=== PATIENT | female | born 1975 | race Hispanic/Latino ===

== ENCOUNTER 2020-02-07 14:18 | Emergency (ER) | payer SELFPAY ==
[2020-02-07] MEDS ORDERED: BUPIVACAINE 0.5% PF 10 ML VIAL ONE (15:38)
[2020-02-07] MEDS ORDERED: LIDOCAINE 1% MPF 5 ML VIAL ONE (15:38)
[2020-02-07] MEDS ORDERED: CLINDAMYCIN 600MG/D5W 600 MG/50 ML BAG IV ONE (15:38)
--- NOTE | 2020-02-07 16:43 | ER ---
Nurse's Notes [facility] Name: Lakeisha Sanon Age: 44 yrs Sex: Female : 1975 Arrival Date: 02/07/2020 Time: 14:21 Bed 24 Private MD: Diagnosis: Other specified disorders of teeth and supporting structures Presentation: 02/06 14:44 Chief complaint: Patient states: "the left side of my face is swollen and hurting.". jd3 Coronavirus screen: At this time, the client does not indicate any symptoms associated with coronavirus-19. Ebola Screen: Patient negative for fever greater than or equal to 101.5 degrees Fahrenheit, and additional compatible Ebola Virus Disease symptoms. Initial Sepsis Screen: Does the patient meet any 2 criteria? No. Patient's initial sepsis screen is negative. Does the patient have a suspected source of infection? No. Patient's initial sepsis screen is negative. Risk Assessment: Do you want to hurt yourself or someone else? Patient reports no desire to harm self or others. Onset of symptoms was February 06, 2020. 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 - Social history:: Smoking status: Patient reports the use of cigarette tobacco products, denies chronic smoking, but will smoke occasionally. Screenin:50 Abuse screen: Denies threats or abuse. Nutritional screening: No deficits noted. aa5 Tuberculosis screening: No symptoms or risk factors identified. Fall Risk None identified. Assessment: 14:48 General: Appears uncomfortable, Behavior is calm, cooperative. Pain: Complains of pain aa5 in left jaw Pain currently is 10 out of 10 on a pain scale. Quality of pain is described as aching, throbbing, Pain began 1 day ago. Is continuous, Aggravated by eating. Neuro: Level of Consciousness is awake, alert, obeys commands, Oriented to person, place, time, situation. Cardiovascular: Patient's skin is warm and dry. Respiratory: Airway is patent Respiratory effort is even, unlabored, Respiratory pattern is regular, symmetrical. GI: No signs and/or symptoms were reported involving the gastrointestinal system. : No signs and/or symptoms were reported regarding the genitourinary system. EENT: Reports toothache. Derm: Skin is pink, warm \\T\\ dry. Musculoskeletal: Range of motion: intact in all extremities. 15:35 Reassessment: Patient is alert, oriented x 3, equal unlabored respirations, skin aa5 warm/dry/pink. Awaiting I\\T\\D. 16:30 Reassessment: Patient is alert, oriented x 3, equal unlabored respirations, skin aa5 warm/dry/pink. PA at bedside for I\\T\\D. 17:15 Reassessment: Patient is alert, oriented x 3, equal unlabored respirations, skin aa5 warm/dry/pink. Vital Signs: 14:45 BP 117 / 75; Pulse 81; Resp 17 S; Temp 98.8(TE); Pulse Ox 99% on R/A; Pain 10/10; jd3 14:48 Weight 55.25 kg (M); aa5 15:35 BP 118 / 72; Pulse 80; Resp 16 S; Pulse Ox 99% on R/A; aa5 ED Course: 14:21 Patient arrived in ED. as 14:44 Triage completed. jd3 14:46 Arm band placed on. jd3 14:47 Tyler Trujillo PA is PHCP. cp 14:47 Hi Dickens MD is Attending Physician. cp 14:48 Aida Pagan, HARVINDER is Primary Nurse. aa5 14:48 Patient has correct armband on for positive identification. Bed in low position. Call aa5 light in reach. Side rails up X 1. 15:33 Inserted saline lock: 20 gauge in right forearm, using aseptic technique. aa5 17:15 No provider procedures requiring assistance completed. IV discontinued, intact, aa5 bleeding controlled, No redness/swelling at site. Pressure dressing applied. Administered Medications: 15:34 Drug: Clindamycin 600 mg Route: IVPB; Infused Over: 30 mins; Site: right forearm; aa5 16:04 Follow up: Response: No adverse reaction; IV Status: Completed infusion aa5 16:30 Drug: Marcaine (0.5 %) 5 ml {Note: administered for I\\T\\D by PA.} Volume: 10 ml; Route: aa5 Infiltration; 16:30 Drug: Lidocaine (1 %) 5 ml {Note: administered for I\\T\\D by PA.} Volume: 5 ml; Route: aa5 Infiltration; Outcome: 16:43 Discharge ordered by . bola 17:15 Discharged to home ambulatory. aa5 17:15 Condition: stable 17:15 Discharge instructions given to patient, Instructed on discharge instructions, follow up and referral plans. medication usage, Demonstrated understanding of instructions, follow-up care, medications, Prescriptions given X 2. 17:20 Patient left the ED. aa5 Signatures: Bessy Wiggins Audri, RN RN aa5 Tyler Trujillo PA PA cp Davies, Jonathon, RN RN jd3 Corrections: (The following items were deleted from the chart) 17:51 17:23 Patient left the ED. aa5 aa5
--- NOTE | 2020-02-07 16:43 | EDPHYS ---
Physician Documentation [facility] Name: Lakeisha Sanon Age: 44 yrs Sex: Female : 1975 Arrival Date: 02/07/2020 Time: 14:21 Bed 24 Private MD: ED Physician Hi Dickens HPI: 02/06 15:05 This 44 yrs old Female presents to ER via Ambulatory with complaints of cp Toothache, Facial Swelling. 15:05 The patient presents with pain, swelling. The problem is located in the left lower jaw. cp 15:05 Onset: The symptoms/episode began/occurred yesterday. Duration: The symptoms are cp continuous, and are steadily getting worse. 15:05 Associated signs and symptoms: Pertinent positives: swelling, mandibular, Pertinent cp negatives: chills, dysphagia, fever, inability to eat, vomiting. Severity of symptoms: in the emergency department the symptoms are unchanged, despite home interventions. 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 - Social history:: Smoking status: Patient reports the use of cigarette tobacco products, denies chronic smoking, but will smoke occasionally. ROS: 15:10 Constitutional: Negative for body aches, chills, fever, poor PO intake. cp 15:10 Eyes: Negative for injury, pain, redness, and discharge. cp 15:10 ENT: Positive for dental pain, left lower jaw pain, Negative for drainage from ear(s), ear pain, sore throat, difficulty swallowing, difficulty handling secretions. 15:10 Cardiovascular: Negative for chest pain, palpitations. 15:10 Respiratory: Negative for cough, shortness of breath, wheezing. 15:10 Abdomen/GI: Negative for abdominal pain, nausea, vomiting, and diarrhea. 15:10 Skin: Negative for rash. 15:10 Neuro: Negative for altered mental status, headache, weakness. 15:10 All other systems are negative. Exam: 15:25 Constitutional: The patient appears in no acute distress, alert, awake, non-toxic, well cp developed, well nourished, uncomfortable. 15:25 Head/face: Noted is no obvious of injury or deformity except swelling, that is mild, of cp the left jaw, tenderness, that is severe, of the left jaw. 15:25 Eyes: Periorbital structures: appear normal, Conjunctiva: normal, no exudate, no injection, Sclera: no appreciated abnormality, Lids and lashes: appear normal, bilaterally. 15:25 ENT: External ear(s): are unremarkable, Nose: is normal, Mouth: Lips: moist, Oral mucosa: pink and intact, moist, Posterior pharynx: Airway: no evidence of obstruction, patent, Dental exam: abscess, that is mild, specifically in the lower left first molar (#19) and lower left second bicuspid (#20), dental caries, that is severe, specifically in the lower left first molar (#19) and lower left second bicuspid (#20), fractured teeth are noted, specifically the lower left first molar (#19) and lower left second bicuspid (#20), pain, that is severe, specifically in the lower left first molar (#19) and lower left second bicuspid (#20), Voice: is normal, negative trismus. 15:25 Neck: ROM/movement: is normal, is supple, without pain, no range of motions limitations, no nuchal rigidity. 15:25 Chest/axilla: Inspection: normal, Palpation: is normal, no crepitus, no tenderness. 15:25 Cardiovascular: Rate: normal. 15:25 Respiratory: the patient does not display signs of respiratory distress, Respirations: normal. Vital Signs: 14:45 BP 117 / 75; Pulse 81; Resp 17 S; Temp 98.8(TE); Pulse Ox 99% on R/A; Pain 10/10; jd3 14:48 Weight 55.25 kg (M); aa5 15:35 BP 118 / 72; Pulse 80; Resp 16 S; Pulse Ox 99% on R/A; aa5 Procedures: 23:50 I \T\ D: Incision and drainage was performed for an abscess of the lower left first molar cp (#19) Anesthetized with left mandibular block with 5 ccs of 1% lidocaine w/o epi and 0.5% marcaine. Drained small amount purulent fluid. area aspirated with 18 gauge needle. MDM: 14:48 Patient medically screened. cp 16:00 Differential diagnosis: dental caries, gingivitis, dental abscess, pericoronitis. cp 16:42 Data reviewed: vital signs, nurses notes, and as a result, I will discharge patient. 16:42 Counseling: I had a detailed discussion with the patient and/or guardian regarding: the cp historical points, exam findings, and any diagnostic results supporting the discharge/admit diagnosis, the need for outpatient follow up, for definitive care, a dentist, to return to the emergency department if symptoms worsen or persist or if there are any questions or concerns that arise at home. Response to treatment: the patient's symptoms have markedly improved after treatment, and as a result, I will discharge patient. 11 15:00 Order name: IV; Complete Time: 15:34 11 15:00 Order name: I\T\D Setup; Complete Time: 15:34 cp Administered Medications: 15:34 Drug: Clindamycin 600 mg Route: IVPB; Infused Over: 30 mins; Site: right forearm; aa5 16:04 Follow up: Response: No adverse reaction; IV Status: Completed infusion aa5 16:30 Drug: Marcaine (0.5 %) 5 ml {Note: administered for I\T\D by PA.} Volume: 10 ml; Route: aa5 Infiltration; 16:30 Drug: Lidocaine (1 %) 5 ml {Note: administered for I\T\D by PA.} Volume: 5 ml; Route: aa5 Infiltration; Disposition: 16:50 Chart complete. 02/07 07:04 Co-signature as Attending Physician, Hi Dickens MD. rn Disposition: 02/07/20 16:43 Discharged to Home. Impression: Other specified disorders of teeth and supporting structures. - Condition is Stable. - Discharge Instructions: Dental Abscess, Dental Pain. - Prescriptions for Clindamycin HCl 300 mg Oral Capsule - take 1 capsule by ORAL route every 6 hours for 10 days; 40 capsule. Tylenol- Codeine #3 300-30 mg Oral Tablet - take 2 tablets by ORAL route every 6 hours As needed; 20 tablet. - Medication Reconciliation Form, Thank You Letter, Antibiotic Education, Prescription Opioid Use form. - Follow up: Private Physician; When: 1 - 2 days; Reason: Recheck today's complaints. - Problem is new. - Symptoms have improved. Signatures: Hi Dickens MD MD rn Calderon, Audri, RN RN aa5 Tyler Trujillo PA PA cp Davies, Jonathon RN RN jd3 Corrections: (The following items were deleted from the chart) 02/06 17:23 16:43 02/07/2020 16:43 Discharged to Home. Impression: Other specified disorders of aa5 teeth and supporting structures. Condition is Stable. Forms are Medication Reconciliation Form, Thank You Letter, Antibiotic Education, Prescription Opioid Use. Follow up: Private Physician; When: 1 - 2 days; Reason: Recheck today's complaints. Problem is new. Symptoms have improved. cp
[2020-02-07 18:36] VITALS: TEMP 98.8; O2SAT 99
[2020-02-07 18:39] VITALS: BP 118/72
== END 2020-02-07 17:23 | disposition home or self-care (01) ==
LOC: ER 14:18
PROC: 0C94XZZ Drainage of Buccal Mucosa, External Approach (ICD-10-PCS; principal; 2020-02-07)
DX: K04.7 Periapical abscess without sinus (principal); Z72.0 Tobacco use
CPT/HCPCS: 96365; 99283

== ENCOUNTER 2020-02-08 21:40 | Emergency (ER) | payer SELFPAY ==
[2020-02-08 22:04] LABS: Protime INR 0.97
[2020-02-08] MEDS ORDERED: NA CHLORIDE 0.9% 1,000 ML ONE (22:04)
[2020-02-08 22:06] LABS: Absolute Lymphocytes (CBC) 4.1 K/uL (0.7-4.9); Basophils % 0.2 % (0-1.3); Hematocrit 37.3 % (36.0-45.0); Lymphocytes % 45.5 % (15.3-44.8); MPV 8.4 fL (7.6-11.3); RBC Red Blood Cell Count 4.04 M/uL (3.86-4.86)
[2020-02-08] MEDS ORDERED: LORazepam 2 MG/ML VIAL ONE (22:18)
[2020-02-08 22:25] LABS: ALT/SGPT 21 U/L (12-78); AST/SGOT 30 U/L (15-37); Albumin 3.6 g/dL (3.4-5.0); Alkaline Phosphatase 94 U/L (45-117); BUN Blood Urea Nitrogen 11 mg/dL (7-18); Bicarbonate 28 mmol/L (21-32); Bilirubin Direct 0.2 mg/dL (0-0.2); Bilirubin Total 0.6 mg/dL (0.2-1.0); Creatine Phosphokinase 43 U/L (26-192); Glucose Level 167 mg/dL (74-106); Lipase 161 U/L (73-393); Magnesium 2.1 mg/dL (1.8-2.4); NT PRO-BNP 10 pg/mL (<125); Potassium 3.8 mmol/L (3.5-5.1); Protein, Total 7.8 g/dL (6.4-8.2); Sodium Level 143 mmol/L (136-145); Troponin (Emerg Dept Use Only) < 0.02 ng/mL (0.0-0.045)
[2020-02-09 01:42] LABS: Urine Blood TRACE (NEG); Urine Glucose NEGATIVE (NEG); Urine Protein NEGATIVE (NEG); Urine pH 6.5 (5.0-7.0)
[2020-02-09 01:48] LABS: Barbiturates NEGATIVE (NEGATIVE); Benzodiazepines NEGATIVE (NEGATIVE); Cocaine NEGATIVE (NEGATIVE); METHAMPHETAM NEGATIVE (NEGATIVE); Methadone NEGATIVE (NEGATIVE); Opiates POSITIVE (NEGATIVE); Phencyclidine NEGATIVE (NEGATIVE); THC Cannibis NEGATIVE (NEGATIVE)
--- NOTE | 2020-02-09 01:53 | EDPHYS ---
Physician Documentation [facility] Name: Lakeisha Sanon Age: 44 yrs Sex: Female : 1975 Arrival Date: 02/08/2020 Time: 21:41 Bed 4 Private MD: ED Physician Joseph Colindres HPI: 02/07 22:19 This 44 yrs old Female presents to ER via Wheelchair with complaints of Near mh7 Syncope, Epigastric Pain. 22:19 The patient has experienced near-syncope, almost passed out. Onset: The mh7 symptoms/episode began/occurred today. 22:20 Onset: The symptoms/episode began/occurred just prior to arrival. Duration: This was a mh7 single episode. Context: the episode(s) was witnessed, by family, son, occurred at home, occurred while the patient was. 22:21 Context: occurred while the patient was standing, Just prior to the episode the patient mh7 experienced no apparent symptoms. Associated injury: The patient did not suffer any apparent associated injury. Associated signs and symptoms: Pertinent positives: abdominal pain, chest pain, shortness of breath, Pertinent negatives: confusion, diaphoresis, diarrhea, dizziness, headache, lightheadedness, nausea, numbness, palpitations, seizure, tingling, vertigo, vomiting, weakness. Current symptoms: Anxious. 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 - Social history:: Smoking status: Patient denies any tobacco usage or history of. ROS: 22:21 Constitutional: Negative for fever, chills, and weight loss, Eyes: Negative for injury, mh7 pain, redness, and discharge, ENT: Negative for injury, pain, and discharge, Neck: Negative for injury, pain, and swelling, Back: Negative for injury and pain, : Negative for injury, bleeding, discharge, and swelling, MS/Extremity: Negative for injury and deformity, Skin: Negative for injury, rash, and discoloration, Allergy/Immunology: Negative for hives, rash, and allergies, Endocrine: Negative for neck swelling, polydipsia, polyuria, polyphagia, and marked weight changes, Hematologic/Lymphatic: Negative for swollen nodes, abnormal bleeding, and unusual bruising. Exam: 22:35 Head/Face: Normocephalic, atraumatic. Eyes: Pupils equal round and reactive to light, mh7 extra-ocular motions intact. Lids and lashes normal. Conjunctiva and sclera are non-icteric and not injected. Cornea within normal limits. Periorbital areas with no swelling, redness, or edema. Neck: Trachea midline, no thyromegaly or masses palpated, and no cervical lymphadenopathy. Supple, full range of motion without nuchal rigidity, or vertebral point tenderness. No Meningismus. Chest/axilla: Normal chest wall appearance and motion. Nontender with no deformity. No lesions are appreciated. Cardiovascular: Regular rate and rhythm with a normal S1 and S2. No gallops, murmurs, or rubs. Normal PMI, no JVD. No pulse deficits. Respiratory: Lungs have equal breath sounds bilaterally, clear to auscultation and percussion. No rales, rhonchi or wheezes noted. No increased work of breathing, no retractions or nasal flaring. 22:35 Back: No spinal tenderness. No costovertebral tenderness. Full range of motion. Skin: Warm, dry with normal turgor. Normal color with no rashes, no lesions, and no evidence of cellulitis. MS/ Extremity: Pulses equal, no cyanosis. Neurovascular intact. Full, normal range of motion. Neuro: Awake and alert, GCS 15, oriented to person, place, time, and situation. Cranial nerves II-XII grossly intact. Motor strength 5/5 in all extremities. Sensory grossly intact. Cerebellar exam normal. Normal gait. 22:35 Constitutional: The patient appears in no acute distress, alert, awake, anxious, uncomfortable. 22:35 Abdomen/GI: Inspection: abdomen appears normal, Bowel sounds: normal, in all quadrants, Palpation: moderate abdominal tenderness, in the epigastric area, Rectal exam: the exam is deferred, because of patient request, Indicators: McBurney's point is not tender, Mcmahan's sign is negative, Rovsing's sign is negative, Obturator sign is negative, Psoas sign is negative, Liver: no appreciated palpable abnormalities, Hernia: not appreciated. 22:35 Psych: 22:35 Psych: Behavior/mood is cooperative, anxious, Affect is animated, Oriented to person, place, time, Patient has no thoughts/intents to harm self or others. Judgement / Insight is normal. Memory is normal. Delusions/hallucinations are not present. Vital Signs: 21:46 BP 158 / 87; Pulse 96; Resp 24; Temp 97.9(TE); Pulse Ox 98% on R/A; Weight 54.88 kg lp1 (R); Pain 10/10; 22:30 BP 145 / 78; Pulse 73; Resp 17; Pulse Ox 100% on R/A; lp1 23:30 BP 117 / 76; Pulse 81; Resp 20; Pulse Ox 100% on R/A; lp1 11 01:22 BP 100 / 62; Pulse 72; Resp 18; Pulse Ox 97% on R/A; mg2 01:49 BP 97 / 64; Pulse 68; Resp 18; Pulse Ox 99% on R/A; mg2 MDM: 01:49 Differential Diagnosis: aortic aneurysm, cardiac arrhythmia, cerebrovascular accident, mh7 drug effect, emotional response, idiopathic syncope, pseudo seizure, seizure, vasovagal episode. Data reviewed: vital signs, nurses notes, lab test result(s), cardiac enzymes, CBC, drug level(s), electrolytes, urinalysis, EKG, radiologic studies, CT scan. Data interpreted: Pulse oximetry: on room air is 99 %. Interpretation: normal. Counseling: I had a detailed discussion with the patient and/or guardian regarding: the historical points, exam findings, and any diagnostic results supporting the discharge/admit diagnosis, lab results, radiology results, the need for outpatient follow up, to return to the emergency department if symptoms worsen or persist or if there are any questions or concerns that arise at home. Response to treatment: the patient's symptoms have resolved after treatment, the patient's blood pressure is in an acceptable range, mental status has returned to baseline, the patient no longer shows bradycardia, the patient is not short of breath, the patient is not tachycardic, the patient's pain is gone, the patient's temperature has normalized. 01:52 Patient medically screened. mh7 02/07 21:42 Order name: Basic Metabolic Panel kb 02/07 21:42 Order name: CBC with Diff kb 02/07 21:42 Order name: LFT's 02/07 21:42 Order name: Magnesium kb 02/07 21:42 Order name: NT PRO-BNP; Complete Time: 22:37 kb 02/07 21:42 Order name: PT-INR; Complete Time: 22:18 kb 02/07 21:42 Order name: Troponin (emerg Dept Use Only); Complete Time: 22:37 kb 02/07 21:43 Order name: Basic Metabolic Panel; Complete Time: 22:37 EDMS 02/07 21:43 Order name: CBC with Automated Diff; Complete Time: 22:18 EDMS 02/07 21:43 Order name: Liver (Hepatic) Function; Complete Time: 22:37 EDMS 02/07 21:43 Order name: Magnesium; Complete Time: 22:37 EDMS 02/07 21:45 Order name: FSBG - FOR PT WITH NO ID sg 02/07 21:45 Order name: Glucose, Ancillary(No Armband); Complete Time: 22:18 EDMS 02/07 21:49 Order name: UDS [facility] 02/07 21:42 Order name: XRAY Chest (1 view) 02/07 21:42 Order name: EKG; Complete Time: 21:44 kb 02/07 21:42 Order name: Cardiac monitoring; Complete Time: 21:50 kb 02/07 21:42 Order name: EKG - Nurse/Tech; Complete Time: 21:50 kb 02/07 21:51 Order name: ETOH Level; Complete Time: 22:18 [facility] 02/07 21:53 Order name: Creatine Phosphokinase; Complete Time: 22:37 EDMS 02/07 21:53 Order name: Lipase; Complete Time: 22:37 EDMS 02/07 22:38 Order name: CT Head Brain wo Cont [facility] 02/07 22:38 Order name: CT Chest For PE Angio [facility] 02/07 22:38 Order name: CT Abd/Pelvis - IV Contrast Only [facility] 02/08 01:29 Order name: Urine --Ancillary (enter results); Complete Time: 01:47 tt3 02/08 01:29 Order name: Urine Dipstick--Ancillary (enter results); Complete Time: 01:47 tt3 02/07 21:42 Order name: IV Saline Lock; Complete Time: 21:50 kb 02/07 21:42 Order name: Labs collected and sent; Complete Time: 21:50 kb 02/07 21:42 Order name: O2 Per Protocol; Complete Time: 21:50 kb 02/07 21:42 Order name: O2 Sat Monitoring; Complete Time: 21:50 kb 02/07 21:49 Order name: Urine Dipstick-Ancillary (obtain specimen); Complete Time: 01:23 [facility] 02/07 21:50 Order name: Urine Test (obtain specimen); Complete Time: 01:23 [facility] 02/08 01:48 Interpretation: Abnormal. [facility] Administered Medications: 02/07 21:50 Drug: NS 0.9% 1000 ml Route: IV; Rate: 1000 ml; Site: right antecubital; mg2 02/08 01:22 Follow up: Response: No adverse reaction; IV Status: Completed infusion; IV Intake: mg2 1000ml 02/07 22:10 Drug: Ativan 0.5 mg Route: IVP; Site: right antecubital; lp1 22:37 Follow up: Response: Marked relief of symptoms; Anxiety decreased lp1 Disposition: 02/09/20 01:52 Discharged to Home. Impression: Near Syncope, Abdominal Pain, Chest Pain. - Condition is Stable. - Discharge Instructions: Near-Syncope, [id number], Abdominal Pain, Adult, [id number], Nonspecific Chest Pain, [id number]. - Medication Reconciliation Form, Thank You Letter, Antibiotic Education, Prescription Opioid Use form. - Follow up: Private Physician; When: 1 - 2 days; Reason: Worsening of condition, Recheck today's complaints, Continuance of care, Re-evaluation by your physician. - Problem is new. - Symptoms have improved. Signatures: Dispatcher [employer] [facility] Tasha Gonzalez, MYSQL DATABASE DEVELOPER-C MYSQL DATABASE DEVELOPER-Ckb Lc Newman RN RN sg Vivienne Palacios RN RN lp1 Ger Hernandez RN RN mg2 Joseph Colindres MD MD 7 Corrections: (The following items were deleted from the chart) 21:53 21:50 LIPASE+C.LAB.BRZ ordered. [facility] 21:53 21:52 CREATINE PHOSPHOKINASE+C.LAB.BRZ ordered. [facility] 02/08 02:13 01:52 02/09/2020 01:52 Discharged to Home. Impression: Near Syncope; Abdominal Pain; mg2 Chest Pain. Condition is Stable. Forms are Medication Reconciliation Form, Thank You Letter, Antibiotic Education, Prescription Opioid Use. Follow up: Private Physician; When: 1 - 2 days; Reason: Worsening of condition, Recheck today's complaints, Continuance of care, Re-evaluation by your physician. Problem is new. Symptoms have improved. mh7
--- NOTE | 2020-02-09 01:53 | ER ---
Nurse's Notes [facility] Name: Lakeisha Sanon Age: 44 yrs Sex: Female : 1975 Arrival Date: 02/08/2020 Time: 21:41 Bed 4 Private MD: Diagnosis: Near Syncope;Abdominal Pain;Chest Pain Presentation: 02/07 21:41 Chief complaint: Patient's son or daughter states: She was at home with some family/friends and they said she almost passed out for few minutes, just wasn't able to stand. She is really acting normal and she just says that shes having pain, abdominal pain and near her chest is having pain, is what she says. Coronavirus screen: Client denies travel out of the [place] in the last 14 days. At this time, the client does not indicate any symptoms associated with coronavirus-19. Ebola Screen: Patient negative for fever greater than or equal to 101.5 degrees Fahrenheit, and additional compatible Ebola Virus Disease symptoms Patient denies exposure to infectious person. Patient denies travel to an Ebola-affected area in the 21 days before illness onset. No symptoms or risks identified at this time. Initial Sepsis Screen: Does the patient meet any 2 criteria? No. Patient's initial sepsis screen is negative. Does the patient have a suspected source of infection? No. Patient's initial sepsis screen is negative. Risk Assessment: Do you want to hurt yourself or someone else? Patient reports no desire to harm self or others. Onset of symptoms was February 08, 2020. Care prior to arrival: None. Transition of care: patient was not received from another setting of care. 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 - Social history:: Smoking status: Patient denies any tobacco usage or history of. Screenin:49 Abuse screen: Denies threats or abuse. Denies injuries from another. Nutritional lp1 screening: No deficits noted. Tuberculosis screening: No symptoms or risk factors identified. 21:51 Fall Risk IV access (20 points). mg2 Assessment: 21:46 General: Appears uncomfortable, Behavior is anxious, inappropriate for age. Pain: lp1 Complains of pain in abdomen Pain currently is 10 out of 10 on a pain scale. Noted to be crying, grimacing, guarding, moaning. Neuro: Level of Consciousness is obeys commands, Oriented to person, place, Patient keeping eyes closed, hyperventilating, answering questions by nodding head. Cardiovascular: Patient's skin is warm and dry. Respiratory: Respiratory effort is even, Respiratory pattern is hyperventilation. GI: Abdomen is non-distended, Abdomen is tender to palpation X 4 quads. Guarding noted X 4 quads. : No signs and/or symptoms were reported regarding the genitourinary system. EENT: No signs and/or symptoms were reported regarding the EENT system. Derm: Skin is pink, warm \T\ dry. Musculoskeletal: No deficits noted. 22:00 Reassessment: Verbal order from provider for Ativan 0.5mg IV now; Patient noted to be lp1 moaning, reports pain to abdomen, hyperventilating. 22:37 Reassessment: Patient appears in no apparent distress at this time. Patient resting, lp1 eyes closed, respirations unlabored. 23:17 Reassessment: patient sent to ct scan via stretcher. mg2 02/08 01:22 Reassessment: Patient appears in no apparent distress at this time. Patient and/or mg2 family updated on plan of care and expected duration. Pain level reassessed. Patient is alert, oriented x 3, equal unlabored respirations, skin warm/dry/pink. 02:12 Reassessment: Patient is alert, oriented x 3, equal unlabored respirations, skin mg2 warm/dry/pink. Vital Signs: 02/07 21:46 BP 158 / 87; Pulse 96; Resp 24; Temp 97.9(TE); Pulse Ox 98% on R/A; Weight 54.88 kg lp1 (R); Pain 10/10; 22:30 BP 145 / 78; Pulse 73; Resp 17; Pulse Ox 100% on R/A; lp1 23:30 BP 117 / 76; Pulse 81; Resp 20; Pulse Ox 100% on R/A; lp1 02/08 01:22 BP 100 / 62; Pulse 72; Resp 18; Pulse Ox 97% on R/A; mg2 01:49 BP 97 / 64; Pulse 68; Resp 18; Pulse Ox 99% on R/A; mg2 ED Course: 02/07 21:41 Patient arrived in ED. sg 21:42 Joseph Colindres MD is Attending Physician. 7 21:42 Arm band placed on. sg 21:43 Triage completed. sg 21:44 Vivienne Palacios, RN is Primary Nurse. lp1 21:48 Patient has correct armband on for positive identification. Placed in gown. Side rails lp1 up X2. aluminum polisher on. Pulse ox on. NIBP on. 21:49 Inserted saline lock: 20 gauge in right antecubital area, using aseptic technique. By lp1 ANNAMARIE Zimmer tech. 21:50 No provider procedures requiring assistance completed. EKG done, by ED staff, reviewed mg2 by Joseph Colindres MD. 23:15 XRAY Chest (1 view) In Process Unspecified. EDMS 23:55 CT Head Brain wo Cont In Process Unspecified. EDMS 23:55 CT Chest For PE Angio In Process Unspecified. EDMS 23:55 CT Abd/Pelvis - IV Contrast Only In Process Unspecified. EDMS 11 01:22 Door closed. Warm blanket given. Assisted with bedpan. mg2 02:12 IV discontinued, intact, bleeding controlled, No redness/swelling at site. Pressure mg2 dressing applied. Administered Medications: 02/07 21:50 Drug: NS 0.9% 1000 ml Route: IV; Rate: 1000 ml; Site: right antecubital; mg2 02/08 01:22 Follow up: Response: No adverse reaction; IV Status: Completed infusion; IV Intake: mg2 1000ml 02/07 22:10 Drug: Ativan 0.5 mg Route: IVP; Site: right antecubital; lp1 22:37 Follow up: Response: Marked relief of symptoms; Anxiety decreased lp1 Intake: 02/08 01:22 IV: 1000ml; Total: 1000ml. mg2 Outcome: 01:52 Discharge ordered by . mh7 02:13 Discharged to home via wheelchair, with family. mg2 02:13 Condition: stable 02:13 Discharge instructions given to patient, family, Instructed on discharge instructions, follow up and referral plans. Demonstrated understanding of instructions, follow-up care. 02:13 Patient left the ED. mg2 Signatures: Dispatcher [employer] EDLc Nolan RN RN sg Vivienne Palacios RN RN lp1 Ger Hernandez RN RN mg2 Joseph Colindres MD MD mh7 Corrections: (The following items were deleted from the chart) 02/07 21:44 21:41 Chief complaint: Patient's son or daughter states: She was at home with some sg family/friends and they said she passed out for few minutes. She is really acting normal and she just says that shes having pain, abdominal pain is what she says sg
[2020-02-09 03:31] VITALS: TEMP 97.9
[2020-02-09 04:02] VITALS: BP 97/64; O2SAT 99
--- NOTE | 2020-02-09 08:24 | RAD REPORT ---
EXAM DESCRIPTION: Rahel Single View02/08/2020 11:15 pm CLINICAL HISTORY: Chest pain COMPARISON: 2016 FINDINGS: The lungs appear clear of acute infiltrate. The heart is normal size IMPRESSION: No acute abnormalities displayed
--- NOTE | 2020-02-09 10:27 | RAD REPORT ---
EXAM DESCRIPTION: CT - Chest For Pe Angio - 02/09/2020 3:38 am CLINICAL HISTORY: CHEST PAIN COMPARISON: None. TECHNIQUE: CT CHEST ANGIOGRAPHY WITH IV CONTRAST on 02/08/2020 10:38 PM GLASS VIAL BENDING CONVEYOR FEEDER. MIPS reconstructions we re generated. This exam was performed according to our departmental dose-optimization program, which includes autom ated exposure control, adjustment of the mA and/or kV according to patient size and/or use of iterati ve reconstruction technique. MIP images were generated. FINDINGS: Thoracic aorta is normal in course and caliber without aneurysm or dissection. Pulmonary a rteries are adequately opacified without acute or chronic filling defects. The heart is normal in size. There is no pericardial effusion. Intrathoracic lymph nodes are not enla rged. There is no pleural effusion, pleural thickening or pneumothorax. Central airways are patent. Lungs a re clear with no consolidation, mass or interstitial lung disease. There are no acute abnormalities within the limited images of the upper abdomen. There are no acute osseous findings. No suspicious bony lesions. IMPRESSION: No aortic dissection or aneurysm. No pulmonary embolus. No pneumonia. Electronically signed by: Riley Dawson MD 02/09/2020 12:07 AM GLASS VIAL BENDING CONVEYOR FEEDER Due to temporary technical issues with the PACS/Fluency reporting system, reports are being signed by the in house radiologist without review as a courtesy to ensure prompt reporting. The interpreting r adiologist is fully responsible for the content of the report.
--- NOTE | 2020-02-09 10:29 | RAD REPORT ---
EXAM DESCRIPTION: CT - Head Brain Wo Cont - 02/09/2020 3:38 am CLINICAL HISTORY: SYNCOPE COMPARISON: None. TECHNIQUE: CT HEAD WITHOUT IV CONTRAST on 02/08/2020 10:38 PM CREDIT COLLECTION ASSOCIATE This exam was performed according to our departmental dose-optimization program, which includes autom ated exposure control, adjustment of the mA and/or kV according to patient size and/or use of iterati ve reconstruction technique. FINDINGS: There is no acute hemorrhage, mass effect or midline shift. Mccollum-white differentiation is preserved. There is no hydrocephalus. There is no significant volume loss for age. The calvarium is intact. Orbits and globes are unremarkable. The paranasal sinuses are clear. Mastoid air cells are clear. IMPRESSION: No acute intracranial findings. Electronically signed by: Riley Dawson MD 02/09/2020 12:06 AM CREDIT COLLECTION ASSOCIATE Due to temporary technical issues with the PACS/Fluency reporting system, reports are being signed by the in house radiologist without review as a courtesy to ensure prompt reporting. The interpreting r adiologist is fully responsible for the content of the report.
--- NOTE | 2020-02-09 10:29 | RAD REPORT ---
EXAM DESCRIPTION: CT - Abdomen Pelvis W Contrast - 02/09/2020 3:39 am CLINICAL HISTORY: ABD PAIN COMPARISON: None. TECHNIQUE: CT ABDOMEN PELVIS WITH IV CONTRAST on 02/08/2020 10:38 PM CREDENTIALS SPECIALIST This exam was performed according to our departmental dose-optimization program, which includes autom ated exposure control, adjustment of the mA and/or kV according to patient size and/or use of iterati ve reconstruction technique. FINDINGS: Lower lungs are clear. Abdomen: The liver is normal in appearance. There is no biliary dilatation. Cholecystectomy was perfo rmed. The pancreas and spleen are normal in appearance. The adrenal glands and kidneys are unremarkab le. Abdominal aorta is normal in course and caliber without aneurysm. There is no free air. There is no r etroperitoneal adenopathy. Pelvis: There is large amount of stool throughout the colon. Urinary bladder is unremarkable. There i s no free fluid. Uterus is normal in size. Appendix is normal. Skeleton: There are no acute osseous findings. No suspicious bony lesions. IMPRESSION: No definite acute process. Electronically signed by: Riley Dawson MD 02/09/2020 12:08 AM CREDENTIALS SPECIALIST Due to temporary technical issues with the PACS/Fluency reporting system, reports are being signed by the in house radiologist without review as a courtesy to ensure prompt reporting. The interpreting r adiologist is fully responsible for the content of the report.
== END 2020-02-09 02:13 | disposition home or self-care (01) ==
LOC: ER 21:40
DX: R10.13 Epigastric pain (principal); R07.9 Chest pain, unspecified
CPT/HCPCS: 36415; 70450; 71045; 71275; 74177; 80048; 80076; 80307; 80320; 81003; 81025; 82550; 82947; 83690; 83735; 83880; 84484; 85025; 85610; 93005; 96361; 96374; 99284; J7030; Q9967

== ENCOUNTER 2022-04-23 03:14 | Emergency (ER) | payer SELFPAY ==
[2022-04-23 03:50] LABS: Urine Blood 1+ (Negative); Urine Glucose Negative (Negative); Urine Protein Negative (Negative); Urine Specific Gravity 1.025 (1.005-1.030); Urine pH 6.5 (5.0-7.0)
[2022-04-23 04:01] LABS: Absolute Lymphocytes (CBC) 2.9 K/uL (0.7-4.9); Hematocrit 39.1 % (36.0-45.0); Lymphocytes % 41.6 % (15.3-44.8); MCV 92.8 fL (80-100); MPV 7.8 fL (7.6-11.3); RBC Red Blood Cell Count 4.22 M/uL (3.86-4.86)
[2022-04-23 04:17] LABS: Bilirubin Total 0.7 mg/dL (0.2-1.0); Potassium 3.6 mmol/L (3.5-5.1); Protein, Total 7.4 g/dL (6.4-8.2)
[2022-04-23 04:20] LABS: Urine Specific Gravity/Preg 1.025 (1.005-1.030)
[2022-04-23] MEDS ORDERED: KETOROLAC 30 MG/ML INJ ONE ×2 (04:22→07:57)
--- NOTE | 2022-04-23 07:22 | RAD REPORT ---
EXAM DESCRIPTION: CTAbdomen Pelvis W Contrast - 04/23/2022 6:54 am CLINICAL HISTORY: LLQ abdominal pain COMPARISON: 02/08/2020 TECHNIQUE: CT of the abdomen and pelvis was performed with IV contrast. All CT scans are performed using dose optimization technique as appropriate and may include automated exposure control or mA/KV adjustment according to patient size. FINDINGS: Lower chest: No acute abnormality. Liver: No acute abnormality or suspicious lesions. Biliary: Cholecystectomy Stomach: No significant focal abnormality. Duodenum: No significant focal abnormality. Pancreas: No significant abnormality. Spleen: No significant abnormality. Adrenal: No suspicious lesions. Kidney/ureter: 3 mm stone in the distal left ureter. Mild left-sided hydroureteronephrosis. Hyperdens ity distal to the stone in the ureter at the left UVJ is of uncertain etiology, possibly some associa debbie hemorrhage. . Punctate stones in the kidneys bilaterally. Retroperitoneum: No retroperitoneal adenopathy. Vascular: No aneurysm. Bowel: Normal appendix.. Peritoneum: No ascites or free air. Bladder: Grossly unremarkable. Reproductive: No adnexal masses. Bones: No acute fracture. Other: n/a IMPRESSION: 3 mm stone in the left distal ureter with mild left-sided hydroureteronephrosis. The sto ne is several cm proximal to the UVJ. Distal to the stone in the left ureter, hyperdense contents are present within the left ureter. This could represent some mild associated hemorrhage or inflammation . Consider outpatient urologic follow-up.
--- NOTE | 2022-04-23 07:50 | ER ---
Nurse's Notes [facility] Name: Lakeisha Sanon Age: 46 yrs Sex: Female : 1975 Arrival Date: 04/23/2022 Time: 03:18 Bed 18 Private MD: Diagnosis: Hydronephrosis with renal and ureteral calculous obstruction-3 mm distal left Presentation: 04/23 03:30 Chief complaint: Patient states: "I'm having sharp pains in my lower stomach that moves vc1 to my back. I am going more often and only a little at a time.". Coronavirus screen: Vaccine status: Patient reports being unvaccinated. Client denies travel out of the [place] in the last 14 days. At this time, the client does not indicate any symptoms associated with coronavirus-19. Ebola Screen: No symptoms or risks identified at this time. Initial Sepsis Screen: Does the patient meet any 2 criteria? No. Patient's initial sepsis screen is negative. Does the patient have a suspected source of infection? No. Patient's initial sepsis screen is negative. Initial Sepsis Screen:. Initial Sepsis Screen: Does the patient meet any 2 criteria? No. Patient's initial sepsis screen is negative. Does the patient have a suspected source of infection?. Initial Sepsis Screen: Does the patient meet any 2 criteria? No. Patient's initial sepsis screen is negative. Does the patient have a suspected source of infection? No. Patient's initial sepsis screen is negative. Risk Assessment: Do you want to hurt yourself or someone else?. Onset of symptoms was April 23, 2022. 03:30 Method Of Arrival: Ambulatory vc1 03:30 Acuity: LILIAN 4 vc1 Triage Assessment: 03:35 General: Appears in no apparent distress. uncomfortable, Behavior is calm, cooperative, vc1 appropriate for age. Pain: Complains of pain in suprapubic area and left lower quadrant Pain radiates to back Pain currently is 9 out of 10 on a pain scale. EENT: No deficits noted. No signs and/or symptoms were reported regarding the EENT system. Neuro: Level of Consciousness is awake, alert, obeys commands. Cardiovascular: No deficits noted. Respiratory: Airway is patent Respiratory effort is even, unlabored, Respiratory pattern is regular, symmetrical. GI: No deficits noted. No signs and/or symptoms were reported involving the gastrointestinal system. : Reports cramping, pain in left in suprapubic area lower quadrant(s) in lower back urgency, urinary frequency. Derm: No deficits noted. No signs and/or symptoms reported regarding the dermatologic system. Musculoskeletal: No deficits noted. No signs and/or symptoms reported regarding the musculoskeletal system. 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 - Social history:: Smoking status: Patient denies any tobacco usage or history of. Screenin:35 Abuse screen: Denies threats or abuse. Nutritional screening: No deficits noted. vc1 Tuberculosis screening: No symptoms or risk factors identified. 03:35 [facility] ED Fall Risk Assessment (Adult) History of falling in the last 3 months, vc1 including since admission No falls in past 3 months (0 pts) Confusion or Disorientation No (0 pts) Intoxicated or Sedated No (0 pts) Impaired Gait No (0 pts) Mobility Assist Device Used No (0 pt) Altered Elimination No (0 pt) Score/Fall Risk Level 0 - 2 = Low Risk Oriented to surroundings, Maintained a safe environment, Educated pt \\T\\ family on fall prevention, incl call for assistance when getting out of bed. Assessment: 03:20 General: Appears comfortable, Behavior is calm, cooperative. Pain: Complains of pain in ha1 suprapubic area Pain radiates to back Quality of pain is described as burning, throbbing, Pain began suddenly. Neuro: Level of Consciousness is awake, alert, obeys commands, Oriented to person, place, time, situation. Cardiovascular: Heart tones S1 S2 present Capillary refill < 3 seconds Patient's skin is warm and dry. Respiratory: Airway is patent Respiratory effort is even, unlabored, Respiratory pattern is regular, symmetrical. GI: No signs and/or symptoms were reported involving the gastrointestinal system. Abdomen is flat, non-distended. : Urine is clear, Reports burning with urination, since yesterday afternoon. EENT: No deficits noted. No signs and/or symptoms were reported regarding the EENT system. Derm: Skin is pink, warm \\T\\ dry. Musculoskeletal: Circulation, motion, and sensation intact. Range of motion: intact in all extremities. 04:20 Reassessment: Patient and/or family updated on plan of care and expected duration. Pain ha1 level reassessed. Patient is alert, oriented x 3, equal unlabored respirations, skin warm/dry/pink. 05:00 Reassessment: Patient and/or family updated on plan of care and expected duration. Pain ha1 level reassessed. Patient is alert, oriented x 3, equal unlabored respirations, skin warm/dry/pink. Patient denies pain at this time. Patient states feeling better. Patient states symptoms have improved. 06:00 Reassessment: Patient and/or family updated on plan of care and expected duration. Pain ha1 level reassessed. Patient is alert, oriented x 3, equal unlabored respirations, skin warm/dry/pink. Patient denies pain at this time. Patient states feeling better. 06:49 Reassessment: Patient and/or family updated on plan of care and expected duration. Pain ha1 level reassessed. Patient is alert, oriented x 3, equal unlabored respirations, skin warm/dry/pink. back from CT. 08:06 Reassessment: Patient appears in no apparent distress at this time. Patient and/or db family updated on plan of care and expected duration. Pain level reassessed. Patient is alert, oriented x 3, equal unlabored respirations, skin warm/dry/pink. discharged pending fluids to be completed. Pain: Complains of pain in abdomen and left lower quadrant. Vital Signs: 03:20 BP 123 / 70; Pulse 66; Resp 16 S; Pulse Ox 98% on R/A; ha1 03:30 BP 123 / 70; Pulse 66; Resp 16; Temp 97.6; Pulse Ox 98% ; Weight 54.43 kg; Height 5 ft. vc1 0 in. (152.40 cm); Pain 10/10; 04:20 BP 106 / 67; Pulse 62; Resp 14 S; Pulse Ox 97% on R/A; ha1 05:00 BP 103 / 55; Pulse 60; Resp 14 S; Pulse Ox 97% on R/A; ha1 06:00 BP 105 / 64; Pulse 62; Resp 14 S; Pulse Ox 98% on R/A; ha1 08:00 BP 94 / 59; Pulse 58; Resp 16; Pulse Ox 100% on R/A; db 08:42 BP 95 / 68; Pulse 68; Resp 16; Temp 98.2(O); Pulse Ox 99% ; ko1 03:30 Body Mass Index 23.44 (54.43 kg, 152.40 cm) vc1 ED Course: 03:18 Patient arrived in ED. ja2 03:21 Yasmany Turner DO is Attending Physician. ms3 03:34 Triage completed. vc1 03:35 Arm band placed on left wrist. vc1 03:36 Briana Tran, RN is Primary Nurse. ha1 03:37 Patient has correct armband on for positive identification. Bed in low position. Pulse vc1 ox on. NIBP on. 03:40 Inserted saline lock: 20 gauge in left antecubital area, using aseptic technique. Blood ha1 collected. 05:51 Transvaginal Study Probe In Process Unspecified. EDMS 06:56 CT Abd/Pelvis - IV Contrast Only In Process Unspecified. EDMS 07:02 Attending Physician role handed off by Yasmany Turner DO elaine 07:02 Tyler Hill MD is Attending Physician. elaine 07:49 Jeremiah Majano MD is Referral Physician. elaine 08:17 No provider procedures requiring assistance completed. ko1 08:32 Urine Culture Sent. ko1 08:42 IV discontinued, intact, bleeding controlled, No redness/swelling at site. Pressure ko1 dressing applied. Administered Medications: 04:29 Drug: Ketorolac 10 mg 10 mg Route: IVP; Site: left antecubital; ha1 05:00 Follow up: Response: No adverse reaction; Pain is decreased ha1 07:58 Drug: Ketorolac 15 mg Route: IVP; Site: left antecubital; db 08:40 Follow up: Response: No adverse reaction; Pain is decreased ko1 07:58 Drug: NS 0.9% 1000 ml Route: IV; Rate: 1 bolus; Site: left antecubital; db 08:40 Follow up: IV Status: Completed infusion; IV Intake: 1000ml ko1 07:58 Drug: Rocephin (cefTRIAXone) 1 grams Route: IV; Rate: per protocol; Site: left db antecubital; 08:30 Follow up: Response: No adverse reaction; IV Status: Completed infusion; IV Intake: db 100ml 08:41 Follow up: Response: No adverse reaction; IV Status: Completed infusion; IV Intake: 53mltx6 07:58 Drug: Flomax (tamsulosin) 0.4 mg Route: PO; db 08:31 Follow up: Response: No adverse reaction db 08:41 Follow up: Response: No adverse reaction ko1 08:34 Drug: Cipro (ciprofloxacin) 500 mg Route: PO; ko1 08:41 Follow up: Response: No adverse reaction ko1 Medication: 03:35 VIS not applicable for this client. vc1 Intake: 08:30 IV: 100ml; Total: 100ml. db 08:40 IV: 1000ml; Total: 1100ml. ko1 08:41 IV: 50ml; Total: 1150ml. ko1 Outcome: 07:50 Discharge ordered by . elaine 08:42 Discharged to home ambulatory. ko1 08:42 Condition: improved 08:42 Discharge instructions given to patient, Instructed on discharge instructions, follow up and referral plans. medication usage, Demonstrated understanding of instructions, follow-up care, medications, Prescriptions given X 4. 08:43 Patient left the ED. ko1 Addendum: 04/25/2022 09:29 Addendum: Culture Results: Positive urine culture. No further action required. Bacteria a a5 sensitive to prescribed antibiotic. Signatures: Dispatcher [employer] EDMS Tyler Hill MD MD cha Calderon, Audri, RN RN aa5 Yasmany Turner DO DO ms3 Neli Quiroga ja2 Brianne Reeves RN RN 1 Briana Tran RN RN ha1 Samreen Gallagher RN RN ko1 Brittanie Stanley RN RN db
--- NOTE | 2022-04-23 07:50 | EDPHYS ---
Physician Documentation [facility] Name: Lakeisha Sanon Age: 46 yrs Sex: Female : 1975 Arrival Date: 04/23/2022 Time: 03:18 Bed 18 Private MD: ANNAMARIE Physician Tyler Hill HPI: 04/23 03:22 This 46 yrs old Female presents to ER via Unassigned with complaints of Pelvic ms3 Pain, Low Back Pain. 03:33 46-year-old female with no past medical history presents for left-sided pelvic pain ms3 that began after getting off work tonight. Patient states the discomfort is pressure, rated 9/10. Patient denies dysuria or fever. Patient endorses frequency, urgency, chills. Patient denies alleviating or inciting factors.. [employer]INER: 03:34 LMP N/A - Post-menopause vc1 Historical: - Allergies: 03:34 No Known Allergies; vc1 - Home Meds: 03:34 None [Active]; vc1 - PMHx: 03:34 None; vc1 - PSHx: 03:34 None; vc1 - Immunization history:: Client reports having NOT received the Covid vaccine. - Social history:: Smoking status: Patient denies any tobacco usage or history of. ROS: 03:33 Eyes: Negative for injury, pain, redness, and discharge, Neck: Negative for injury, ms3 pain, and swelling, Cardiovascular: Negative for chest pain, and palpitations. Respiratory: Negative for shortness of breath, cough, wheezing, and pleuritic chest pain. 03:33 MS/Extremity: Negative for injury and deformity, Skin: Negative for injury, rash, and discoloration. 03:33 Constitutional: Positive for chills. 03:33 Abdomen/GI: Positive for 03:33 : Positive for urinary frequency, small amounts, difficulty urinating, Negative for burning with urination. 03:33 All other systems are negative. Exam: 03:33 Constitutional: This is a well developed, well nourished patient who is awake, alert, ms3 and in no acute distress. Neck: Trachea midline, no cervical lymphadenopathy. Supple, full range of motion without nuchal rigidity, or vertebral point tenderness. No Meningismus. Chest/axilla: Normal chest wall appearance and motion. Nontender with no deformity. Cardiovascular: Regular rate and rhythm with a normal S1 and S2. No gallops, murmurs, or rubs. Normal PMI, no JVD. No pulse deficits. Respiratory: Lungs have equal breath sounds bilaterally, clear to auscultation and percussion. No rales, rhonchi or wheezes noted. No increased work of breathing, no retractions or nasal flaring. Skin: Warm, dry with normal turgor. Normal color with no rashes, no lesions, and no evidence of cellulitis. MS/ Extremity: Pulses equal, no cyanosis. Neurovascular intact. Full, normal range of motion. 03:33 Abdomen/GI: Inspection: abdomen appears normal, Bowel sounds: normal, Palpation: mild abdominal tenderness, in the left lower quadrant. Vital Signs: 03:20 BP 123 / 70; Pulse 66; Resp 16 S; Pulse Ox 98% on R/A; ha1 03:30 BP 123 / 70; Pulse 66; Resp 16; Temp 97.6; Pulse Ox 98% ; Weight 54.43 kg; Height 5 ft. vc1 0 in. (152.40 cm); Pain 10/10; 04:20 BP 106 / 67; Pulse 62; Resp 14 S; Pulse Ox 97% on R/A; ha1 05:00 BP 103 / 55; Pulse 60; Resp 14 S; Pulse Ox 97% on R/A; ha1 06:00 BP 105 / 64; Pulse 62; Resp 14 S; Pulse Ox 98% on R/A; ha1 08:00 BP 94 / 59; Pulse 58; Resp 16; Pulse Ox 100% on R/A; db 08:42 BP 95 / 68; Pulse 68; Resp 16; Temp 98.2(O); Pulse Ox 99% ; ko1 03:30 Body Mass Index 23.44 (54.43 kg, 152.40 cm) vc1 MDM: 03:33 Differential diagnosis: UTI, Ovarian torsion vs ovarian cyst. ms3 03:37 Patient medically screened. ms3 06:21 ED course: US without acute findings in the pelvis. Ovaries not seen. CBC normal. UA ms3 not indicative of UTI. Patient LLQ abdomen with TTP. Will obtain CT abdomen and pelvis with IV contrast.. 07:04 Transition of care: After a detail discussion of the patient's case, care is ms3 transferred to Tyler Hill MD. 07:47 Data reviewed: vital signs, nurses notes, lab test result(s), radiologic studies, CT elaine scan. Consideration of Admission/Observation Patient was admitted/placed on observation. Escalation of care including admission/observation considered. Discussion of test interpretation with radiology: I had a discussion with radiology regarding a test interpretation. stone, 3 mm distal left with debris. Historians other than the Patient: Spouse/Significant Other: sig other. 04/23 03:38 Order name: CBC with Diff; Complete Time: 04:11 ms3 04/23 03:38 Order name: CMP; Complete Time: 05:02 ms3 04/23 03:51 Order name: Urine Dipstick-Ancillary; Complete Time: 04:11 EDMS 04/23 04:16 Order name: Urine --Ancillary (enter results); Complete Time: 05:02 04/23 08:26 Order name: Urine Culture elaine 04/23 05:47 Order name: Transvaginal Study Probe EDMS 04/23 06:18 Order name: CT Abd/Pelvis - IV Contrast Only; Complete Time: 07:46 ms3 04/23 03:38 Order name: IV Saline Lock; Complete Time: 03:53 ms3 04/23 03:38 Order name: Labs collected and sent; Complete Time: 03:53 ms3 04/23 03:38 Order name: Urine Dipstick-Ancillary (obtain specimen); Complete Time: 03:54 ms3 04/23 03:38 Order name: Urine Test (obtain specimen); Complete Time: 03:54 ms3 Administered Medications: 04:29 Drug: Ketorolac 10 mg 10 mg Route: IVP; Site: left antecubital; ha1 05:00 Follow up: Response: No adverse reaction; Pain is decreased ha1 07:58 Drug: Ketorolac 15 mg Route: IVP; Site: left antecubital; db 08:40 Follow up: Response: No adverse reaction; Pain is decreased ko1 07:58 Drug: NS 0.9% 1000 ml Route: IV; Rate: 1 bolus; Site: left antecubital; db 08:40 Follow up: IV Status: Completed infusion; IV Intake: 1000ml ko1 07:58 Drug: Rocephin (cefTRIAXone) 1 grams Route: IV; Rate: per protocol; Site: left db antecubital; 08:30 Follow up: Response: No adverse reaction; IV Status: Completed infusion; IV Intake: db 100ml 08:41 Follow up: Response: No adverse reaction; IV Status: Completed infusion; IV Intake: [id number] 07:58 Drug: Flomax (tamsulosin) 0.4 mg Route: PO; db 08:31 Follow up: Response: No adverse reaction db 08:41 Follow up: Response: No adverse reaction ko1 08:34 Drug: Cipro (ciprofloxacin) 500 mg Route: PO; ko1 08:41 Follow up: Response: No adverse reaction ko1 Disposition Summary: 04/23/22 07:50 Discharge Ordered Location: Home elaine Problem: new elaine Symptoms: have improved elaine Condition: Stable [facility] Diagnosis - Hydronephrosis with renal and ureteral calculous obstruction - 3 mm distal left elaine Followup: elaine - With: Private Physician - When: 2 - 3 days - Reason: Recheck today's complaints, Continuance of care, Re-evaluation by your physician Followup: elaine - With: Jeremiah Majano MD - When: 2 - 3 days - Reason: Recheck today's complaints, Continuance of care, Re-evaluation by your physician Discharge Instructions: - Kidney Stones elaine - Kidney Stones, [id number] elaine - Discharge Summary Sheet ha1 - Hydronephrosis [facility] Forms: - SBAR form ha1 - Medication Reconciliation Form [facility] - Thank You Letter [facility] - Antibiotic Education [facility] - Prescription Opioid Use [facility] Prescriptions: - Zofran 4 mg Oral Tablet - take 1 tablet by ORAL route every 12 hours As needed; 20 tablet; Refills: 0, [facility] Product Selection Permitted - Flomax 0.4 mg Oral capsule - take 1 capsule by ORAL route once daily 1/2 hour following the same meal each [facility] day; 20 capsule; Refills: 0, Product Selection Permitted - Cipro 500 mg Oral Tablet - take 1 tablet by ORAL route every 12 hours for 7 days; 14 tablet; Refills: 0, [facility] Product Selection Permitted - Tylenol-Codeine #3 300 mg-30 mg Oral - take 2 tablet by ORAL route every 6 hours; 20 tablet; Refills: 0, Product [facility] Selection Permitted Signatures: Dispatcher [employer] Tyler Thornton MD MD cha Sims, Marcus, DO DO ms3 Brianne Reeves RN RN vc1 Briana Tran RN RN ha1 Samreen Gallagher, HARVINDER RN ko1 Brittanie Stanley, RN RN db Corrections: (The following items were deleted from the chart) 05:47 03:39 Pelvis Complete+[email or web address].RAD.[email or web address] ordered. EDMS EDMS
[2022-04-23] MEDS ORDERED: TAMSULOSIN 0.4 MG SR CAP ONE (07:56)
[2022-04-23] MEDS ORDERED: CEFTRIAXONE 1000 MG/VIAL ONE (07:56)
[2022-04-23] MEDS ORDERED: NA CHLORIDE 0.9% 1,000 ML ONE (07:57)
[2022-04-23] MEDS ORDERED: NA CHLORIDE 0.9% 50 ML IV ONE (07:57)
[2022-04-23] MEDS ORDERED: CIPROFLOXACIN HCL 500 MG TAB ONE (08:37)
[2022-04-23 09:13] VITALS: BP 95/68; TEMP 98.2; O2SAT 99
--- NOTE | 2022-04-23 20:33 | RAD REPORT ---
EXAM DESCRIPTION: US - Transvaginal Study Probe - 04/23/2022 5:49 am CLINICAL HISTORY: The patient is 46 years old and is Female; ABD PAIN TECHNIQUE: Real-time transabdominal and transvaginal pelvic ultrasound with image documentation. T ransvaginal imaging was used for better evaluation of the endometrium and adnexa. COMPARISON: 02/08/2020 CT abdomen pelvis with contrast FINDINGS: UTERUS/CERVIX: Nabothian cyst incidentally noted. No myometrial mass. The uterus measures 5.2 x 2.5 x 3.1 cm. The endometrial stripe measures 0.2 cm in thickness. RIGHT OVARY: Neither the left or right ovary is visualized on transabdominal or transvaginal imagi ng. LEFT OVARY: See above. FREE FLUID: No free fluid. No abnormal adnexal masses. BLADDER: Appears unremarkable for level of decompression. IMPRESSION: 1. Nonvisualization of either ovary. 2. No acute findings in the pelvis. Electronically signed by: Saurav Barney MD 04/23/2022 5:58 AM [employer] Due to temporary technical issues with the PACS/Fluency reporting system, reports are being signed by the in house radiologists without review as a courtesy to insure prompt reporting. The interpreting radiologist is fully responsible for the content of the report.
== END 2022-04-23 08:43 | disposition home or self-care (01) ==
LOC: ER 03:14
DX: N13.2 Hydronephrosis with renal and ureteral calculous obstruction (principal)
CPT/HCPCS: 36415; 74177; 76830; 80053; 81003; 81025; 85025; 87077; 87086; 87088; 87186; 96365; 96375; 99284; J7030; Q9967